=== PATIENT | female | born 1970 | race Caucasian/White ===

== ENCOUNTER → 2017-06-15 | Outpatient (CLI) | payer BC ==
--- NOTE | 2017-06-19 07:42 | MAMMOGRAPHY REPORT ---
BILATERAL DIGITAL SCREENING MAMMOGRAM TOMOSYNTHESIS WITH CAD: 06/15/2017 CLINICAL HISTORY: Routine screening. Patient has no complaints. TECHNIQUE: Breast tomosynthesis in addition to standard 2D mammography was performed. Current study was also evaluated with a Computer Aided Detection (CAD) system. COMPARISON: No prior exams were available for comparison. BREAST COMPOSITION: The tissue of both breasts is heterogeneously dense, which may obscure small mas ses. FINDINGS: There is a 5 mm focal asymmetry in the upper inner middle one third of the left breast, fo r which comparison to prior outside mammograms would be useful to assess stability. If the outside e xams are not obtained in a timely manner, additional spot compression tomosynthesis views and possibl e ultrasound are recommended. No other suspicious mass, architectural distortion or cluster of microcalcifications is seen bilatera llskyla. IMPRESSION: ACR BI-RADS CATEGORY 0: INCOMPLETE EVALUATION: NEED ADDITIONAL IMAGING EVALUATION The 5 mm focal asymmetry in the left upper inner breast needs comparison to prior outside mammograms. If the outside exams are not obtained in a timely manner, additional spot compression tomosynthesis views and possible ultrasound are recommended. The patient will be called to schedule an appointment. Approximately 10% of breast cancers are not detected with mammography. A negative mammographic report should not delay biopsy if a clinically suggestive mass is present. Garima Marks M.D. ay/:06/18/2017 17:06:35 Cashier Receptionist: Kaley HUDSON(Saúl)(Ariadne), [facility] letter sent: Need Priors 0 BI-RADS Code: ACR BI-RADS Category 0: Incomplete Evaluation: Need Additional Imaging Evaluation
== END | disposition home or self-care (01) ==
LOC: C.MAMM 16:27
PROVIDERS: ATTEND Obstetrics & Gynecology
DX: Z12.31 Encounter for screening mammogram for malignant neoplasm of breast (principal)

== ENCOUNTER → 2017-07-12 | Outpatient (CLI) | payer BC ==
--- NOTE | 2017-07-12 14:36 | MAMMOGRAPHY REPORT ---
UNILATERAL LEFT DIGITAL DIAGNOSTIC MAMMOGRAM TOMOSYNTHESIS AND TARGETED LEFT ULTRASOUND: 07/12/2017 CLINICAL HISTORY: Callback from screening mammogram for left breast asymmetry. TECHNIQUE: Breast tomosynthesis in addition to standard 2D mammography was performed. Spot compress ion left CC and MLO 2-D and tomosynthesis images were obtained. COMPARISON: Comparison is made to exam dated: 06/15/2017 mammogram - [facility]. BREAST COMPOSITION: The tissue of the left breast is heterogeneously dense, which may obscure small masses. FINDINGS: Spot compression views demonstrate a round circumscribed 6 mm mass within the left medial breast, best seen on the cc tomosynthesis images, possibly projecting at approximately 9:00 based on the MLO images. Targeted ultrasound was performed of the left medial breast in the region of the mammographic mass. In the left breast at 9:00, approximately 4 cm from the nipple, there is an oval circumscribed anecho ic mass with a thin internal septation, measuring 6 x 3 x 3 mm. This corresponds with the mammograph ic mass and is consistent with a benign cyst. IMPRESSION: ACR BI-RADS CATEGORY 2: BENIGN, TARGETED ULTRASOUND ACR BI-RADS CATEGORY 2: BENIGN Benign 6 mm cyst in the left 9:00 breast on ultrasound, which corresponds with the circumscribed mamm ographic mass. There is no mammographic or targeted sonographic evidence of malignancy. A 1 year scr eening mammogram is recommended. The patient has been verbally notified of the results. Approximately 10% of breast cancers are not detected with mammography. A negative mammographic report should not delay biopsy if a clinically suggestive mass is present. Lizett Kunz M.D. ah/:07/12/2017 11:57:33 Intelligent Systems Engineer: Jennifer TRIANA)(Ariadne), [facility] letter sent: Normal 1/2 BI-RADS Code: ACR BI-RADS Category 2: Benign Ultrasound BI-RADS: ACR BI-RADS Category 2: Benign
== END | disposition home or self-care (01) ==
LOC: C.MAMM 11:24
PROVIDERS: ATTEND Obstetrics & Gynecology
DX: N60.02 Solitary cyst of left breast (principal)

== ENCOUNTER 2022-04-13 15:44 | Observation (INO) ==
--- NOTE | 2022-04-13 16:43 | ED Triage Note ---
Date of Service April 13, 2022 History of Present Illness This patient was briefly evaluated while in triage. An abbreviated physical exam was performed. This patient is a 51-year-old Female with who presents to the ED for evaluation of an ovarian cyst. Patient was seen at [place] [facility] last night due to pelvic pain and was found to have a large cyst on her right ovary. She was seen in the [facility] office today and sent here for reimaging and OBGYN consult. Physical Exam VITALS: Vitals are noted on the nurse's note and reviewed by myself. GENERAL: This is a 51-year-old female, appears uncomfortable, well-developed well-nourished. SKIN: The skin was without rashes. EYES: Pupils equal round and reactive to light and accommodation. MOUTH: Mucous membranes moist. HEART: Regular rate and rhythm without murmurs gallops or rubs. LUNGS: Clear to auscultation bilaterally without wheezes, rales or rhonchi. ABDOMEN: Positive bowel sounds x 4. Soft, tenderness in the right lower quadrant. NEURO: Patient was alert and oriented to person place and time. Initial orders for labs and / or imaging were placed and patient was placed in the waiting area until a bed is available. Please see further documentation for the full ED course.
[2022-04-13 17:28] LABS: Basophils # (auto) 0.04 K/uL (0-0.2); Basophils % (auto) 0.4 %; Eosinophils # (auto) 0.05 K/uL (0-0.50); Eosinophils % (auto) 0.5 %; Hematocrit (blood only) 38.3 % (34.1-44.9); Hemoglobin 12.7 g/dl (12.0-16.0); Immature Granulocytes # (auto) 0.04 K/uL (0.00-0.02); Immature Granulocytes % (auto) 0.4 %; Lymphocytes # (auto) 1.27 K/uL (1.2-3.4); Lymphocytes % (auto) 13.8 %; Mean Corpuscular Hemoglobin 31.6 pg (25.0-34.0); Mean Corpuscular Hgb Conc 33.2 g/dL (32.0-36.0); Mean Corpuscular Volume 95.3 fL (80.0-100.0); Mean Platelet Volume 10.9 fL (9.4-12.3); Monocytes # (auto) 0.51 K/uL (0.24-0.82); Monocytes % (auto) 5.5 %; Neutrophils # (auto) 7.32 K/uL (1.4-6.5); Neutrophils % (auto) 79.4 %; Platelet Count 209 K/uL (130-400); RDW Coefficient of Variation 14.8 % (11.5-14.5); RDW Standard Deviation 51.8 fL (36.4-46.3); Red Blood Count 4.02 M/uL (3.93-5.22); White Blood Count 9.23 K/ul (4.8-10.8)
[2022-04-13 17:52] LABS: Albumin Globulin Ratio 1.6 (0.9-2); Albumin Level 4.2 gm/dl (3.4-5.0); BUN Creatinine Ratio 10.7 (10-20); Bilirubin,Total 1.1 mg/dl (0.2-1.0); Creatinine Clr Calc Pharmacy 80.9 ml/min; Est GFR (Non-African American) 79.3 ml/min; Globulin 2.7 gm/dl (2.5-4.0); Total Protein 6.9 gm/dl (6.0-8.3)
--- NOTE | 2022-04-13 20:01 | Emergency Department Note ---
History of Present Illness General Chief complaint: Pelvic Pain Stated complaint: PELVIC PAIN Time Seen by Provider: 04/13/22 18:38 Source: patient Mode of arrival: ambulatory Limitations: no limitations History of Present Illness Maximum Pain Intensity: 8 This patient is a 51-year-old female who presents to the emergency department for evaluation of an ovarian cyst/mass. Patient was seen at a different emergency department overnight due to pelvic pain and was found to have a large cyst on her right ovary. Patient has had increasing pain and followed up with [facility] today, who sent her here for repeat imaging and admission. Patient denies vomiting. She denies any abnormal vaginal discharge. She denies any history of ovarian masses. Home Medications Medication Instructions Recorded Confirmed Type cetirizine 10 mg capsule (Zyrtec) 10 mg PO DAILY PRN Allergy Symptoms 09/07/20 04/20/22 History cholecalciferol (vitamin D3) 50 50 mcg PO QAM 09/07/20 04/20/22 History mcg (2,000 unit) capsule fluticasone propionate 50 1 spray intranasal DAILY PRN 09/07/20 04/20/22 History mcg/actuation nasal Congestion spray,suspension (Flonase Allergy Relief) folic acid 1 mg tablet 1 mg PO QAM 09/07/20 04/20/22 History levothyroxine 50 mcg capsule 50 mcg PO QAM 09/07/20 04/20/22 History methotrexate sodium 2.5 mg tablet 2.5 mg PO .COMPLEX 09/07/20 04/20/22 History oxycodone 5 mg tablet 5 mg PO UD PRN Pain 04/13/22 04/20/22 History acetaminophen 500 mg tablet 1,000 mg PO Q8 #0 tabs 04/14/22 04/20/22 Rx (Tylenol Extra Strength) Allergies Allergy/AdvReac Type Severity Reaction Status Date / Time No Known Allergies Allergy Verified 04/20/22 12:21 Past Med/Surg History Medical History Abnormal mammogram dense tissue History of COVID-22 October 2020--cold symptoms-cough and congestion, fatigue--no issues now Hx of migraines Hypothyroidism Ovarian cyst Postmenopausal Rheumatoid arthritis Seasonal allergies Surgical History History of colonoscopy History of dental surgery tooth extraction/implant History of endometrial ablation 2010 Family History Aunt Breast cancer paternal aunt Father Coronary heart disease Myocardial infarction Grandmother (Paternal) No problems noted. Brother [place] disease Grandmother (Maternal) Family history of pseudocholinesterase deficiency Mother Enlarged aorta Denies family history of Ovarian cancer Colorectal cancer Uterine cancer Social History Smoking Status: Never smoker Second Hand Exposure: No; Hx Alcohol Use: Yes Alcohol type: wine and hard liquor Hx Substance Use: No Preferred Language: Slovak Communication Ability: Effective Research Physician Required: No Beliefs That Will Affect Care: None marital status: Current Living Situation: Family current occupational status: employed Feels Safe at Home: Yes Sexual Activity Comment: Spouse - vasectomy Assistive Devices: Contacts and Glasses Review of Systems A total of 10 systems reviewed and were otherwise negative Physical Exam Vital Signs Vital Signs - 24 hr 04/13/22 20:00 Pulse Rate [Apical] 67 Pulse Rhythm [Apical] Regular Pulse Strength [Apical] Normal Respiratory Rate 18 Respiratory Effort / Characteristics Non-Labored Respiratory Depth Normal Respiratory Pattern Regular Blood Pressure [Right Arm] 130/74 Blood Pressure Mean [Right Arm] 92 Blood Pressure Position [Right Arm] Lying Pulse Oximetry 95 Oxygen Delivery Method Room Air VITALS: Vitals are noted on the nurse's note and reviewed by myself. GENERAL: This is a 51-year-old female, in no acute distress, well-developed well-nourished. SKIN: The skin was without rashes. EYES: Pupils equal round and reactive to light and accommodation. MOUTH: Mucous membranes moist. NECK: Supple without nuchal rigidity. HEART: Regular rate and rhythm without murmurs gallops or rubs. LUNGS: Clear to auscultation bilaterally without wheezes, rales or rhonchi. ABDOMEN: Positive bowel sounds x 4. Soft, tenderness noted across lower abdomen. No guarding or rebound tenderness. NEURO: Patient was alert and oriented to person place and time. Course Administered Medications Discontinued Medications Acetaminophen (Acetaminophen 500 Mg Tab) 1,000 mg PO Q8H KARENA Stop: 05/14/22 09:59 Last Admin: 04/14/22 10:07 Dose: 1,000 mg Documented By: ADDI Cetirizine HCl (Cetirizine Hcl 10 Mg Tablet) 10 mg PO DAILY PRN PRN Reason: Allergy Symptoms Last Admin: 04/14/22 02:07 Dose: 10 mg Documented By: JARRELL Folic Acid (Folic Acid 1 Mg Tab) 1 mg PO QAM KARENA Stop: 05/14/22 08:59 Last Admin: 04/14/22 08:25 Dose: 1 mg Documented By: ADDI Acetaminophen (Ofirmev) 1,000 mg in 100 mls @ 400 mls/hr IV Q8H KARENA Stop: 04/17/22 01:59 Last Infusion: 04/14/22 02:07 Dose: 0 mls/hr Documented By: Admin: 04/14/22 02:07 Dose: 400 mls/hr Documented By: JARRELL Lactated Ringer's (Lr) 1,000 mls @ 125 mls/hr IV .Q8H KARENA Stop: 05/14/22 01:32 Last Infusion: 04/14/22 10:52 Dose: 0 mls/hr Documented By: Admin: 04/14/22 01:45 Dose: 125 mls/hr Documented By: JARRELL Levothyroxine Sodium (Levothyroxine Sodium 50 Mcg Tablet) 50 mcg PO DAILYBB KARENA Stop: 05/14/22 06:29 Last Admin: 04/14/22 06:14 Dose: 50 mcg Documented By: JARRELL Morphine Sulfate (Morphine Sulfate 10 Mg/Ml Carp/Vial) 6 mg IV NOW STA Stop: 04/13/22 20:39 Last Admin: 04/13/22 21:10 Dose: 6 mg Documented By: BIN Ondansetron HCl (Ondansetron Inj 2 Mg/Ml 2 Ml Vial) 4 mg IV NOW STA Stop: 04/13/22 20:45 Last Admin: 04/13/22 21:10 Dose: 4 mg Documented By: BIN Oxycodone HCl (Oxycodone Hcl Ir 5 Mg Tab (Immediate Release)) 5 mg PO Q4H KARENA Stop: 04/28/22 01:59 Last Admin: 04/14/22 10:07 Dose: 5 mg Documented By: Admin: 04/14/22 06:14 Dose: 5 mg Documented By: Admin: 04/14/22 02:06 Dose: 5 mg Documented By: JARRELL Vitamin D (Cholecalciferol 1,000 Units 25 Mcg Tab) 2,[facility] [place] Stop: 05/14/22 08:59 Last Admin: 04/14/22 08:25 Dose: 2,000 units Documented By: ADDI Medical Decision Making Differential Diagnosis Appendicitis, ovarian cyst, ovarian torsion, ectopic , TOA, PID, infections, diverticulitis, UTI, obstruction, mesenteric ischemia, aortic patho logy, inflammatory bowel disease, renal colic, PUD, pancreatitis, biliary pathology, hernia, volvulus, constipation, as well as other pathologies. Home Medications Current Medication List: was personally reviewed by me Laboratory Data Attestation: I reviewed the patient's lab results. Result diagrams: 04/13/22 17:08 04/13/22 17:08 Lab Results 04/13/22 04/13/22 04/13/22 Range/Units 17:08 17:08 17:08 WBC 9.23 (4.8-10.8) K/ul RBC 4.02 (3.93-5.22) M/uL Hgb 12.7 (12.0-16.0) g/dl Hct 38.3 (34.1-44.9) % MCV 95.3 (80.0-100.0) fL MCH 31.6 (25.0-34.0) pg MCHC 33.2 (32.0-36.0) g/dL RDW Std Deviation 51.8 H (36.4-46.3) fL RDW Coeff of Mayra 14.8 H (11.5-14.5) % Plt Count 209 (130-400) K/uL MPV 10.9 (9.4-12.3) fL Immature Gran % (Auto) 0.4 % Neut % (Auto) 79.4 % Lymph % (Auto) 13.8 % Appling % (Auto) 5.5 % Eos % (Auto) 0.5 % Baso % (Auto) 0.4 % Neut # (Auto) 7.32 H (1.4-6.5) K/uL Lymph # (Auto) 1.27 (1.2-3.4) K/uL Appling # (Auto) 0.51 (0.24-0.82) K/uL Eos # (Auto) 0.05 (0-0.50) K/uL Baso # (Auto) 0.04 (0-0.2) K/uL Immature Gran # (Auto) 0.04 H (0.00-0.02) K/uL Sodium 137 (136-145) mmol/L Potassium 4.0 (3.5-5.1) mmol/L Chloride 104 (98-107) mmol/L Carbon Dioxide 28 (21-32) mmol/L Anion Gap 5 (3-11) BUN 9 (6-23) mg/dl Creatinine 0.84 (0.6-1.2) mg/dl Est Cr Clr Drug Dosing 80.9 ml/min Est GFR ( Amer) 92.0 ml/min Est GFR (Non-Af Amer) 79.3 ml/min BUN/Creatinine Ratio 10.7 (10-20) Glucose 109 H (70-99(Fasting)) mg/dl Calcium 9.0 (8.5-10.1) mg/dl Total Bilirubin 1.1 H (0.2-1.0) mg/dl AST 27 (13-39) U/L ALT 50 (7-52) U/L Alkaline Phosphatase 61 (34-104) U/L Total Protein 6.9 (6.0-8.3) gm/dl Albumin 4.2 (3.4-5.0) gm/dl Globulin 2.7 (2.5-4.0) gm/dl Albumin/Globulin Ratio 1.6 (0.9-2) Carcinoembryonic Ag 0.4 (0-2.5) ng/ml CA 19-9 Antigen (<34) U/mL CA 125 Antigen (<35) U/mL SARS-CoV-2, RNA, NAAT (NEGATIVE) 04/13/22 04/13/22 Range/Units 17:08 21:40 WBC (4.8-10.8) K/ul RBC (3.93-5.22) M/uL Hgb (12.0-16.0) g/dl Hct (34.1-44.9) % MCV (80.0-100.0) fL MCH (25.0-34.0) pg MCHC (32.0-36.0) g/dL RDW Std Deviation (36.4-46.3) fL RDW Coeff of Mayra (11.5-14.5) % Plt Count (130-400) K/uL MPV (9.4-12.3) fL Immature Gran % (Auto) % Neut % (Auto) % Lymph % (Auto) % Appling % (Auto) % Eos % (Auto) % Baso % (Auto) % Neut # (Auto) (1.4-6.5) K/uL Lymph # (Auto) (1.2-3.4) K/uL Appling # (Auto) (0.24-0.82) K/uL Eos # (Auto) (0-0.50) K/uL Baso # (Auto) (0-0.2) K/uL Immature Gran # (Auto) (0.00-0.02) K/uL Sodium (136-145) mmol/L Potassium (3.5-5.1) mmol/L Chloride (98-107) mmol/L Carbon Dioxide (21-32) mmol/L Anion Gap (3-11) BUN (6-23) mg/dl Creatinine (0.6-1.2) mg/dl Est Cr Clr Drug Dosing ml/min Est GFR ( Amer) ml/min Est GFR (Non-Af Amer) ml/min BUN/Creatinine Ratio (10-20) Glucose (70-99(Fasting)) mg/dl Calcium (8.5-10.1) mg/dl Total Bilirubin (0.2-1.0) mg/dl AST (13-39) U/L ALT (7-52) U/L Alkaline Phosphatase (34-104) U/L Total Protein (6.0-8.3) gm/dl Albumin (3.4-5.0) gm/dl Globulin (2.5-4.0) gm/dl Albumin/Globulin Ratio (0.9-2) Carcinoembryonic Ag (0-2.5) ng/ml CA 19-9 Antigen 14 (<34) U/mL CA 125 Antigen 28 (<35) U/mL SARS-CoV-2, RNA, NAAT NEGATIVE (NEGATIVE) Imaging Data Attestation: I personally reviewed and interpreted this imaging study as follows: Radiologist's Impression: Pelvis Ultrasound 04/13/22 16:37 US pelvic complete CLINICAL HISTORY: Abdominal pain, known ovarian cyst/mass TECHNIQUE: Real-time sonographic images of the pelvic contents were obtained with transabdominal and transvaginal technique. Comparison: None available at the time of this dictation. FINDINGS: The uterus measures 6.3 x 2.5 x 2.8 cm. The endometrial cavity echo stripe measures 0.3 cm in thickness. The uterus is normal in appearance. The right ovary measures 5.5 x 6.5 x 6.2 cm. The left ovary is not visualized. A complex cyst is noted in the right ovary. There was moderate fluid in the cul-de-sac. IMPRESSION: 1. No acute abnormality is noted. Right ovarian blood flow is seen, the left ovary was not visualized. 2. There is a cystic lesion in the right ovary, corresponding to known ovarian cyst/mass. There is moderate pelvic free fluid. Correlation with prior imaging, available, is recommended. ACT 112: Negative or not required by law. Electronically signed by: Abraham Abbott M.D. 04/13/2022 8:20 PM Transvaginal US 04/13/22 16:38 US pelvic complete CLINICAL HISTORY: Abdominal pain, known ovarian cyst/mass TECHNIQUE: Real-time sonographic images of the pelvic contents were obtained with transabdominal and transvaginal technique. Comparison: None available at the time of this dictation. FINDINGS: The uterus measures 6.3 x 2.5 x 2.8 cm. The endometrial cavity echo stripe measures 0.3 cm in thickness. The uterus is normal in appearance. The right ovary measures 5.5 x 6.5 x 6.2 cm. The left ovary is not visualized. A complex cyst is noted in the right ovary. There was moderate fluid in the cul-de-sac. IMPRESSION: 1. No acute abnormality is noted. Right ovarian blood flow is seen, the left ovary was not visualized. 2. There is a cystic lesion in the right ovary, corresponding to known ovarian cyst/mass. There is moderate pelvic free fluid. Correlation with prior imaging, available, is recommended. ACT 112: Negative or not required by law. Electronically signed by: Abraham Abbott M.D. 04/13/2022 8:20 PM MDM Narrative This patient is a 51-year-old female who presents to the emergency department for evaluation of a right ovarian cyst/mass. Ultrasound performed here and shows a large cystic lesion in the right ovary. Moderate pelvic free fluid is noted. [facility] was consulted and evaluated the patient. They recommended admission for pain control and further evaluation. Impression & Plan Ovarian cyst, Pelvic pain Discharge Plan Visit Data Chief Complaint: Pelvic Pain Stated Complaint: PELVIC PAIN ED Provider: Azeem More ED Midlevel Provider: Abida Brown Discharge Problem: Ovarian cyst, Pelvic pain Patient Disposition: Admitted As Inpatient Discharge Instructions Interventions: ED Discharge Assessment Last Done: 04/14/22 01:17
--- NOTE | 2022-04-13 20:22 | Ultrasound Report ---
US pelvic complete CLINICAL HISTORY: Abdominal pain, known ovarian cyst/mass TECHNIQUE: Real-time sonographic images of the pelvic contents were obtained with transabdominal and transvaginal technique. Comparison: None available at the time of this dictation. FINDINGS: The uterus measures 6.3 x 2.5 x 2.8 cm. The endometrial cavity echo stripe measures 0.3 cm in thickne ss. The uterus is normal in appearance. The right ovary measures 5.5 x 6.5 x 6.2 cm. The left ovary is not visualized. A complex cyst is note d in the right ovary. There was moderate fluid in the cul-de-sac. IMPRESSION: 1. No acute abnormality is noted. Right ovarian blood flow is seen, the left ovary was not visualize d. 2. There is a cystic lesion in the right ovary, corresponding to known ovarian cyst/mass. There is m oderate pelvic free fluid. Correlation with prior imaging, available, is recommended. ACT 112: Negative or not required by law. Electronically signed by: Abraham Abbott M.D. 04/13/2022 8:20 PM
[2022-04-13] MEDS ORDERED: MoRPHine SULFATE 10 MG/ML CARP/VIAL IV STA (20:38)
[2022-04-13] MEDS ORDERED: ONDANSETRON INJ 2 MG/ML 2 ML VIAL IV STA (20:44)
--- NOTE | 2022-04-13 23:01 | OB/GYN Consultation ---
Date of Consultation April 13, 2022 Assessment & Plan (1) Ovarian cyst: 51 y/o postmenopausal female presents to ER from clinic with abdominal pain and known cyst -VSS, pt is painful but is more of a deep pain as not particularly worsened with palpation. I reviewed US images with the pt and her as well as the scanned in reports from [facility]. Discussed that the appearance and description of cyst is concerning for complex cyst/dermoid vs malignant neoplasm, particularly given size, solid component and pt's age and menopausal status. Discussed that US is unable to differentiate between the two. Unclear how long this mass has been there as there is no prior imaging before yesterday. -Discussed laparoscopy for removal today with understanding of risk of malignancy and that if malignancy is discovered, this would potentially implicate additional surgery and anesthesia risk by a director of marketing oncologist that she would be referred to. Discussed pain management while additional workup is undertaken including tumor markers and then discuss surgical planning once labs return as they may indicate director of marketing oncology referral. Pt and verbalized understanding of their discussion and would like to see if can get pain controlled until more info can be obtained. Will admit for obs for pain control overnight. Tumor markers ordered. Ample time given for questions, answered to apparent satisfaction. History of Present Illness Reason for Consultation: Abdominal pain, ovarian cyst Requesting Physician: Abida Brown History of Present Illness 51 y/o postmenopausal female was referred to ER due to persistent significant abdominal pain in the setting of a newly diagnosed ovarian cyst. Was seen for annual exam 2 wks ago and without concerns. Yesterday at 530pm she had acute onset of severe abdominal pain and went to the [facility] ER. Workup in the ER there included a CT scan demonstrating 11cm pelvic mass w/ cystic solid components suspected ovarian in origin. Subsequent US there showed a small uterus, L ovary not visualized. Right ovary demonstrated complex cyst w/ internal echogenic debris and solid and complex components measuring 7.5cm. No evidence of torsion. Pt was seen as f/u today in the office but due to persistent significant pain, was referred to the ER. In the ER, pt rates pain 8/10 but when treated w/ oxycodone gets to 4/10. Has not taken tylenol, is on methotrexate for RA but reports she was told can take NSAIDs but has not yet. No bowel issues. US in our ER reported a right complex cyst. Allergies Allergy/AdvReac Type Severity Reaction Status Date / Time No Known Allergies Allergy Verified 04/13/22 15:09 Home Medications Medication Instructions Recorded Confirmed Type cetirizine 10 mg capsule (Zyrtec) 10 mg PO DAILY PRN Allergy Symptoms 09/07/20 04/13/22 History cholecalciferol (vitamin D3) 50 50 mcg PO QAM 09/07/20 04/13/22 History mcg (2,000 unit) capsule fluticasone propionate 50 1 spray intranasal DAILY PRN 09/07/20 04/13/22 History mcg/actuation nasal Congestion spray,suspension (Flonase Allergy Relief) folic acid 1 mg tablet 1 mg PO QAM 09/07/20 04/13/22 History levothyroxine 50 mcg capsule 50 mcg PO QAM 09/07/20 04/13/22 History methotrexate sodium 2.5 mg tablet 2.5 mg PO .COMPLEX 09/07/20 04/13/22 History oxycodone 5 mg tablet 5 mg PO UD PRN Pain 04/13/22 04/13/22 History Patient History Medical History (Updated 04/13/22 @ 15:14 by Rebecca Walker MD, FACOG) Abnormal mammogram dense tissue Anemia in [facility] History of COVID-22 October 2020--cold symptoms-cough and congestion, fatigue--no issues now Hx of migraines Hypothyroidism Positive colorectal cancer screening using Cologuard test Postmenopausal Rheumatoid arthritis Seasonal allergies Surgical History History of dental surgery tooth extraction/implant History of endometrial ablation 2010 Family History (Updated 04/04/22 @ 15:36 by Lorraine Manrique MD, FACOG) Aunt Breast cancer paternal aunt Father Coronary heart disease Myocardial infarction Grandmother (Paternal) No problems noted. Brother [place] disease Grandmother (Maternal) Family history of pseudocholinesterase deficiency Mother Enlarged aorta Denies family history of Ovarian cancer Colorectal cancer Uterine cancer Social History (Updated 04/04/22 @ 15:18 by Oneyda Cadena LPN) Smoking Status: Never smoker Second Hand Exposure: No; Hx Alcohol Use: Yes Alcohol type: wine and hard liquor Hx Substance Use: No Preferred Language: Canadian Communication Ability: Effective Wood Machine Carver Required: No Beliefs That Will Affect Care: None marital status: Current Living Situation: Spouse and Family Current Living Situation Comment: Lives with and 1 child for summer current occupational status: employed Feels Safe at Home: Yes Sexual Activity Comment: Spouse - vasectomy Assistive Devices: Contacts and Glasses Physical Exam Constitutional: WD/WN, vitals as above Respiratory: normal respiratory effort, lungs clear to auscultation Gastrointestinal (Abdomen): Abd soft, pt is tender in RLQ but not particularly worsened with palpation. No rebound or guarding Results & Data ([facility]) Vital Signs (Past 12 Hours) Vital Signs Temp Pulse Resp BP Pulse Ox O2 Del Method 04/13/22 16:38 97.5 F L 68 18 114/72 98 Room Air PG Care Time/CCT Total # of Minutes Spent Total Time Spent with Patient: Total time spent is greater than 50% in coordination of care (as documented) at patient's floor/unit and/or counseling patient: Coding Level of Care Code 28163 Office/OBS Consult Lvl 4 Diagnoses Ovarian cyst N83.209
[2022-04-14] MEDS ORDERED: FLUTICASONE PROPIONATE NA SPR 16 GM BTL PRN (01:33)
[2022-04-14] MEDS ORDERED: LACTATED RINGER'S 1,000 ML IV SCH (01:33)
[2022-04-14] MEDS ORDERED: CETIRIZINE HCL 10 MG TABLET PO PRN (01:33)
[2022-04-14] MEDS ORDERED: ACETAMINOPHEN 1,000 MG/100 ML VIAL IV SCH (02:00)
[2022-04-14] MEDS: oxyCODONE HCL IR 5 MG TAB (IMMEDIATE RELEASE) PO SCH ×3 (02:06→10:07)
[2022-04-14] MEDS ORDERED: METHYLERGONOVINE MALEATE 0.2 MG/ML AMP IM STA (02:54)
[2022-04-14] MEDS ORDERED: LEVOTHYROXINE SODIUM 50 MCG TABLET PO SCH (06:30)
--- NOTE | 2022-04-14 07:49 | Gynecologic Progress Note ---
Date of Service April 14, 2022 Assessment & Plan (1) Ovarian cyst: Plan: -Patient would like to wait on pending results before moving forward with any plan. -CA 19-9 and CA 125 antigen pending. -Pain well controlled with IV Tylenol and PO oxycodone. Will switch to PO Tylenol -If patient is able to tolerate PO meds then she can be sent home today and can f/u to discuss results and next course of action. Admission and Anticipated Discharge Date Admission Date: April 14, 2022 Supervising Physician Co-Signing Physician Notes Resident Physician Supervision Note: I interviewed and examined the patient. Discussed with Dr. Lawrence and agree with findings and plan as documented in the note. Any exceptions or clarifications are listed here: [None] Documented By: Emily Martin MD Subjective Patient was seen beside this AM. She feels well and the pain in tolerated with current pain medications. She reports that it is a 5/10 before and is a 2-3/10 after she takes her prn meds. She denies any other issues or concerns and wishes to wait for pending labs before moving forward. Review of Systems Review of Systems: Denies fever, chills, sweats Denies shortness of breath, difficulty breathing, chest pain, palpitations, chest pressure. Denies breast pain. Denies dysuria. Denies headache or changes in vision. Physical Exam Physical Exam: Constitutional: well-appearing, no acute distress HEENT: NCAT, no conjunctival injection CV: regular rhythm, no murmur appreciated, extremities well-perfused, no LE edema Resp: CTABL, no wheezes/rales/rhonchi appreciated, no increased work of breathing GI: soft, nondistended, BS normoactive, RLQ tenderness MSK: no gross deformities appreciated Skin: warm, dry, no rash appreciated Neuro: alert, oriented, no focal neurologic deficit appreciated Results & Data ([facility]) Vital Signs (Past 12 Hours) Vital Signs Temp Pulse Resp BP Pulse Ox O2 Del Method 04/14/22 05:30 36.9 C 64 20 105/65 97 Room Air 04/14/22 01:25 36.5 C 64 20 106/67 98 Room Air 04/14/22 01:00 78 18 136/82 94 Room Air 04/13/22 20:00 67 18 130/74 95 Room Air Resident Activity Tracking Resident Involvement: Resident Care Provided Care Provided: OB Delivery
--- NOTE | 2022-04-14 07:54 | Gynecologic Progress Note ---
Date of Service April 14, 2022 Assessment & Plan (1) Ovarian cyst: Plan: -pain management better with combination of IV tylenol and oxycodone scheduled. Will transition to PO tylenol and oxycodone to make sure still reasonable control this AM. Will also let pt eat as she is hungry now and see how she does -if reasonable PO pain control and able to tolerate po, will be ok for d/c later today. Tumor markers are already pending so will contact pt with return of results and determine surgical planning and/or referral at that time. Admission and Anticipated Discharge Date Admission Date: April 14, 2022 Subjective Pt was able to get some sleep overnight. Currently rates pain at 3-4/10 which is the best she's had since the initial onset. Is actually hungry this AM Physical Exam Constitutional: WD/WN, vitals as above Respiratory: normal respiratory effort; no respiratory distress and no labored breathing Gastrointestinal (Abdomen): Inspection/Auscultation: abdomen normal to inspection Results & Data ([facility]) Vital Signs (Past 12 Hours) Vital Signs Temp Pulse Resp BP Pulse Ox O2 Del Method 04/14/22 07:14 98.6 F 61 16 101/63 Room Air 04/14/22 05:30 98.4 F 64 20 105/65 97 Room Air 04/14/22 01:25 97.7 F 64 20 106/67 98 Room Air 04/14/22 01:00 78 18 136/82 94 Room Air 04/13/22 20:00 67 18 130/74 95 Room Air PG Care Time/CCT Total # of Minutes Spent Total Time Spent with Patient: Total time spent is greater than 50% in coordination of care (as documented) at patient's floor/unit and/or counseling patient: Coding Level of Care Code None Diagnoses Ovarian cyst N83.209
[2022-04-14] MEDS ORDERED: CHOLECALCIFEROL 1,000 UNITS 25 MCG TAB PO SCH (09:00)
[2022-04-14] MEDS ORDERED: FOLIC ACID 1 MG TAB PO SCH (09:00)
[2022-04-14] MEDS ORDERED: ACETAMINOPHEN 500 MG TAB PO SCH (10:00)
[2022-04-16 10:11] LABS: CA 125 28 U/mL (<35); Cancer Antigen 19-9 14 U/mL (<34)
--- NOTE | 2022-04-17 12:55 | Discharge Summary ---
Date of Service April 17, 2022 Admission HPI Per Admitting Provider 51 y/o postmenopausal female was referred to ER due to persistent significant abdominal pain in the setting of a newly diagnosed ovarian cyst. Was seen for annual exam 2 wks ago and without concerns. Yesterday at 530pm she had acute onset of severe abdominal pain and went to the [place] ER. Workup in the ER there included a CT scan demonstrating 11cm pelvic mass w/ cystic solid components suspected ovarian in origin. Subsequent US there showed a small uterus, L ovary not visualized. Right ovary demonstrated complex cyst w/ internal echogenic debris and solid and complex components measuring 7.5cm. No evidence of torsion. Pt was seen as f/u today in the office but due to persistent significant pain, was referred to the ER. In the ER, pt rates pain 8/10 but when treated w/ oxycodone gets to 4/10. Has not taken tylenol, is on methotrexate for RA but reports she was told can take NSAIDs but has not yet. No bowel issues. US in our ER reported a right complex cyst. Admission Exam (Per Admitting) Constitutional WD/WN, vitals as above Respiratory normal respiratory effort, lungs clear to auscultation normal respiratory effort; no respiratory distress and no labored breathing Gastrointestinal (Abdomen) Inspection/Auscultation: abdomen normal to inspection Abd soft, pt is tender in RLQ but not particularly worsened with palpation. No rebound or guarding Discharge Data Consultations 04/13/22 21:29 ED Decision to Admit Stat Hospital Course (1) Ovarian cyst: Pt was admitted overnight and pain control achieved with tylenol and oxycodone. She did well the following morning and was able to tolerate PO. She was discharged home with plan to await pending tumor markers to determine surgical plan Coding Level of Care Code None Diagnoses Ovarian cyst N83.209
== END 2022-04-14 12:42 | disposition home or self-care (01) | DRG 761 ==
LOC: ED 15:44 → INTOOBSV 04-14 00:37 → 4E2 04-14 00:37